=== PATIENT | male | born 1970 | race Two or more races ===

== ENCOUNTER 2019-04-10 14:08 | Emergency (ER) | payer SELFPAY ==
[~2019-04-10] VITALS: Ht 180.3 cm; Wt 119.0 kg
[2019-04-10 17:08] VITALS: BP 137/92
== END 2019-04-10 17:51 | disposition home or self-care (01) ==
LOC: EDBD 14:08 → ED 16:55
DX: K70.31 Alcoholic cirrhosis of liver with ascites (principal)
CPT/HCPCS: 36415; 49083; 71045; 80053; 83690; 83880; 84484; 85025; 85610; 85730; 93005; 99285; J3490

== ENCOUNTER 2019-10-16 15:01 | Emergency (ER) | payer SELFPAY ==
[~2019-10-16] VITALS: Ht 180.3 cm; Wt 123.0 kg
[2019-10-16 15:13] VITALS: BP 142/99
[2019-10-16 15:46] LABS: ALBUMIN 3.4 g/dL (3.4-5.0); ANION GAP 5 mmol/L (5-15); CALCIUM 8.8 mg/dL (8.5-10.1); CHLORIDE 106 mmol/L (98-107)
[2019-10-16 15:50] LABS: ALANINE AMINOTRANSFERASE 12 U/L (12-78); ALKALINE PHOSPHATASE 166 U/L (45-117); BILIRUBIN,TOTAL 2.2 mg/dL (0.2-1.0); CREATININE 1.87 mg/dL (0.7-1.3); TOTAL PROTEIN 7.8 g/dL (6.4-8.2)
[2019-10-16 16:14] LABS: BASOPHILS # (AUTO) 0.04 x10^3/uL (0-0.1); BASOPHILS % (AUTO) 1 % (0-1); EOSINOPHILS # (AUTO) 0.34 x10^3/uL (0-0.4); EOSINOPHILS % (AUTO) 10 % (1-7); LYMPHOCYTES # (AUTO) 0.39 x10^3/uL (1-3.4); LYMPHOCYTES % (AUTO) 12 % (22-44); MD NO; MEAN CORPUSCULAR HEMOGLOBIN 23.5 pg (27.5-34.5); MEAN CORPUSCULAR HGB CONC 30.4 g/dL (33.2-36.2); MEAN CORPUSCULAR VOLUME 77.4 fL (81-97); MEAN PLATELET VOLUME 7.7 fL (7.4-10.4); MONOCYTES # (AUTO) 0.37 x10^3/uL (0.2-0.8); MONOCYTES % (AUTO) 11 % (2-9); NEUTROPHILS # (AUTO) 2.17 x10^3/uL (1.8-6.8); NEUTROPHILS % (AUTO) 66 % (42-75); PLATELET COUNT 131 x10^3/uL (130-400); RED BLOOD COUNT 3.59 x10^6/uL (4.38-5.82); RED CELL DISTRIBUTION WIDTH 19.3 % (9.4-14.8)
[2019-10-16] MEDS ORDERED: LIDOCAINE 1%, 10ML ONE (16:44)
--- NOTE | 2019-10-16 17:20 | NUR ---
pt to room at this time from IR
== END 2019-10-16 18:39 | disposition home or self-care (01) ==
LOC: ED 18:30
DX: K70.31 Alcoholic cirrhosis of liver with ascites (principal); R94.31 Abnormal electrocardiogram [ECG] [EKG]
CPT/HCPCS: 36415; 49083; 71045; 80053; 83690; 83880; 85025; 93005; 99285; J3490

== ENCOUNTER 2019-10-28 04:56 | Inpatient (IN) | payer SELFPAY ==
[~2019-10-28] VITALS: Ht 180.3 cm; Wt 129.0 kg
[2019-10-28] MEDS ORDERED: ACETAMINOPHEN 500 MG TABLET ONE (05:11)
--- NOTE | 2019-10-28 05:25 | NUR ---
THIS IS A 49Y M THAT COMES IN TONIGHT FOR SOB, ACITES AND SWOLLEN TESTES. PT STS HE HAD HIS ABD DRAINED 2WKS AGO BUT IS NOT FEELING ANY BETTER AFTER THAT. PT CONNECTED TO MONITORING. EDGAR DYER
--- NOTE | 2019-10-28 05:34 | NUR ---
md at bedside to assess pt
[2019-10-28 06:13] LABS: INTERNATIONAL NORMALIZED RATIO 1.12 (0.93-1.1); PROTHROMBIN TIME 11.9 Seconds (9.6-11.5)
[2019-10-28 06:15] LABS: ALANINE AMINOTRANSFERASE 10 U/L (12-78); ALBUMIN 3.1 g/dL (3.4-5.0); ANION GAP 4 mmol/L (5-15); CALCIUM 8.4 mg/dL (8.5-10.1); CHLORIDE 106 mmol/L (98-107)
[2019-10-28 06:19] LABS: ALKALINE PHOSPHATASE 172 U/L (45-117); BILIRUBIN,TOTAL 2.1 mg/dL (0.2-1.0); TOTAL PROTEIN 7.6 g/dL (6.4-8.2)
[2019-10-28 06:30] LABS: MEAN CORPUSCULAR HEMOGLOBIN 23.9 pg (27.5-34.5); MEAN CORPUSCULAR HGB CONC 30.7 g/dL (33.2-36.2); MEAN CORPUSCULAR VOLUME 78.1 fL (81-97); MEAN PLATELET VOLUME 8.1 fL (7.4-10.4); PLATELET COUNT 116 x10^3/uL (130-400); RED BLOOD COUNT 3.43 x10^6/uL (4.38-5.82)
--- NOTE | 2019-10-28 06:43 | NUR ---
MD AT BEDSIDE TO ASSESS PT
[2019-10-28] MEDS ORDERED: FUROSEMIDE 40 MG/4 ML ONE (06:58)
[2019-10-28] MEDS ORDERED: FUROSEMIDE 40 MG/4 ML IV ONE (07:00)
[2019-10-28 07:03] LABS: BASOPHILS # (AUTO) 0.06 x10^3/uL (0-0.1); BASOPHILS % (AUTO) 2 % (0-1); EOSINOPHILS # (AUTO) 0.32 x10^3/uL (0-0.4); EOSINOPHILS % (AUTO) 9 % (1-7); LYMPHOCYTES # (AUTO) 0.35 x10^3/uL (1-3.4); LYMPHOCYTES % (AUTO) 10 % (22-44); MD SCAN; MONOCYTES % (AUTO) 11 % (2-9); NEUTROPHILS # (AUTO) 2.47 x10^3/uL (1.8-6.8); NEUTROPHILS % (AUTO) 69 % (42-75)
--- NOTE | 2019-10-28 07:08 | NUR ---
REPORT RECIEVED FROM NOC RN, ASSUMED CARE OF PT. PIV INITIATED, PT MEDICATED PER MAR. REQUESTED PT TO HAVE FAMILY MEMBER BRING IN MED LIST, PT UNSURE OF DOSES. NAD NOTED
[2019-10-28] MEDS ORDERED: LIDOCAINE 1%, 10ML ONE (07:14)
[2019-10-28] MEDS ORDERED: FURO20TA3 PO (07:14)
[2019-10-28] MEDS ORDERED: HEPARIN 5,000 UNITS/ML, 1ML SQ SCH (07:30)
[2019-10-28] MEDS ORDERED: morphine SULFATE 10 MG/ML, 1ML IVPush PRN (07:30)
[2019-10-28 08:18] LABS: FREE T4 (FREE THYROXINE) 1.12 ng/dL (0.76-1.46)
[2019-10-28 08:32] VITALS: BP 137/91
[2019-10-28] MEDS ORDERED: SPIRONOLACTONE 25 MG TABLET PO SCH (09:00)
[2019-10-28] MEDS: FUROSEMIDE 40 MG/4 ML IV SCH (09:27)
[2019-10-28] MEDS ORDERED: SPIR50TA4 PO (11:28)
[2019-10-28] MEDS: ACETAMINOPHEN 325 MG TABLET PO PRN ×2 (11:45→20:22)
[2019-10-28 15:00] VITALS: BP_SYST 132; BP_SYST 135; BP_DIAS 82
[2019-10-28 17:10] LABS: OCCULT BLOOD NEGATIVE (NEGATIVE)
[2019-10-28 17:13] LABS: CULTURE INDICATED? YES; MICROSCOPIC INDICATED
[2019-10-28 19:52] VITALS: BP 125/83
[2019-10-29 01:39] VITALS: BP 129/84
[2019-10-29 05:57] LABS: ALBUMIN 2.9 g/dL (3.4-5.0); ANION GAP 7 mmol/L (5-15); CALCIUM 8.5 mg/dL (8.5-10.1); CHLORIDE 105 mmol/L (98-107)
[2019-10-29 06:01] LABS: ALANINE AMINOTRANSFERASE 13 U/L (12-78); ALKALINE PHOSPHATASE 178 U/L (45-117); BILIRUBIN,TOTAL 2.2 mg/dL (0.2-1.0); CREATININE 2.27 mg/dL (0.7-1.3); TOTAL PROTEIN 7.2 g/dL (6.4-8.2)
[2019-10-29 06:09] LABS: MEAN CORPUSCULAR HEMOGLOBIN 23.7 pg (27.5-34.5); MEAN CORPUSCULAR HGB CONC 30.9 g/dL (33.2-36.2); MEAN CORPUSCULAR VOLUME 76.8 fL (81-97); MEAN PLATELET VOLUME 8.6 fL (7.4-10.4); PLATELET COUNT 118 x10^3/uL (130-400); RED BLOOD COUNT 3.49 x10^6/uL (4.38-5.82); RED CELL DISTRIBUTION WIDTH 20.2 % (9.4-14.8)
[2019-10-29 06:31] LABS: MD YES
[2019-10-29 06:34] LABS: BASOS#(MANUAL) 0.11 x10^3/uL (0-0.1); BASOS% (MANUAL) 3 % (0-1); EOS#(MANUAL) 0.53 x10^3/uL (0.0-0.4); EOS% (MANUAL) 14 % (1-7); LYMPH#(MANUAL) 0.27 x10^3/uL (1-3.4); LYMPHS% (MANUAL) 7 % (22-44); MONOS#(MANUAL) 0.19 x10^3/uL (0.3-2.7); MONOS% (MANUAL) 5 % (2-9); SEGS% (MANUAL) 71 % (42-75)
[2019-10-29 06:35] LABS: ANISOCYTOSIS 1+; HYPOCHROMIA 1+; MICROCYTOSIS 1+
[2019-10-29 06:37] LABS: <PLATELET ESTIMATE> DECREASED
[2019-10-29 06:38] LABS: <PLT MORPHOLOGY> NORMAL PLT MORPH
[2019-10-29 06:40] LABS: TARGET CELLS 1+
[2019-10-29 07:31] VITALS: BP 133/89
[2019-10-29] MEDS: FUROSEMIDE 40 MG/4 ML IV SCH (08:35)
[2019-10-29] MEDS ORDERED: IRON1TAB37 PO (11:56)
[2019-10-29] MEDS ORDERED: FURO20TA3 PO ×3 (11:56→12:09)
== END 2019-10-29 13:43 | disposition home or self-care (01) | DRG 433 ==
LOC: ED 07:12 → EDIP 07:26 → 4WST 08:39 → DCLOUNGE 10-29 13:29
PROVIDERS: ADMIT Internal Medicine Infectious Disease; ATTEND Family Medicine
PROC: 0W9G3ZZ Drainage of Peritoneal Cavity, Percutaneous Approach (ICD-10-PCS; principal; 2019-10-28)
DX: K70.9 Alcoholic liver disease, unspecified (principal); D61.818 Other pancytopenia; I31.3 Pericardial effusion (noninflammatory); R18.8 Other ascites; D50.9 Iron deficiency anemia, unspecified; D63.8 Anemia in other chronic diseases classified elsewhere; E87.5 Hyperkalemia; F10.21 Alcohol dependence, in remission; N18.3 Chronic kidney disease, stage 3 (moderate); N50.89 Other specified disorders of the male genital organs; K72.10 Chronic hepatic failure without coma; Z83.3 Family history of diabetes mellitus; Z87.891 Personal history of nicotine dependence
CPT/HCPCS: 36415; 89051; J3490; 49083; 71045; 80053; 81001; 82272; 82728; 83540; 83550; 83880; 84439; 84443; 85025; 85610; 85730; 87070; 87086; 87186; 87205; 93005; 99285; G0378; J1940